=== PATIENT | male | born 1945 | race Caucasian/White ===

== ENCOUNTER → 2022-04-10 13:29 | Outpatient (BNVA) | payer MEDICARE, OTHER, SELFPAY | DX: N40.1 Benign prostatic hyperplasia with lower urinary tract symptoms (principal); N13.8 Other obstructive and reflux uropathy; R35.1 Nocturia; R68.82 Decreased libido; E29.1 Testicular hypofunction | CPT/HCPCS: 99202 ==

== ENCOUNTER → 2022-05-22 08:49 | Outpatient (BNVA) | payer MEDICARE, OTHER, SELFPAY | PROVIDERS: Visit Provider Urology | DX: N32.0 Bladder-neck obstruction (principal); R35.1 Nocturia; N40.1 Benign prostatic hyperplasia with lower urinary tract symptoms; R68.82 Decreased libido | CPT/HCPCS: Q3014 ==

== ENCOUNTER → 2022-12-29 15:03 | Outpatient (BNVA) | payer MEDICARE, OTHER, SELFPAY | PROVIDERS: Visit Provider Urology | DX: N32.0 Bladder-neck obstruction (principal); R35.1 Nocturia | CPT/HCPCS: 51798; 99212 ==

== ENCOUNTER 2023-05-28 08:46 | Outpatient (REF) | payer MEDICARE, OTHER, SELFPAY ==
--- NOTE | ~2023-05-28 | US_ITS ---
EXAMINATION: US PELVIS LIMITED (BLADDER) CLINICAL INFORMATION: Poor urinary stream. COMPARISON: None available. TECHNIQUE: Real-time imaging of the bladder. FINDINGS: BLADDER: Well distended and normal. Bilateral ureteral jets are demonstrated. Prevoid bladder volume is 488 mL. Postvoid bladder volume is 180 mL. Enlarged prostate, volume 56.9 mL. US/US bladder IMPRESSION: Increased post void bladder volume with an enlarged prostate suggesting chronic outlet obstruction.
== END 2023-05-28 08:47 | disposition home or self-care (01) ==
LOC: HO.HMGCX 08:46
PROVIDERS: Visit Provider Urology
DX: R39.12 Poor urinary stream (principal); N32.0 Bladder-neck obstruction
CPT/HCPCS: 76857

== ENCOUNTER 2023-08-18 12:48 | Outpatient (AMB) | payer MEDICARE, OTHER, SELFPAY ==
--- NOTE | 2023-08-18 12:50 | A.OFFVIS_ITS ---
Intake Intake Visit Reasons: cysto/US Intake Note: Patient is Present for Cystoscopy/US Urology Med: Tadalafil, Tamsulosin Antibiotic Allergy: None Blood Thinner: None URO- G Disposable Cystoscope lot:[id number] exp:03/24/25 Allergies No Known Allergies Allergy (Verified 08/18/23 12:56) HPI HPI Comments History of Present Illness Details Iggy is a pleasant male. He is a patient of Dr Tompkins. He is seen for the following urologic conditions - lower urinary tract symptoms - low libido Came off tamsulosin as did not think it was helpful Cystoscopy today Mild bilobar crowding Discussed procedure He would like to continue with follow-up Nocturia 2-3 times per night, weakness of stream Incomplete bladder emptying Double voiding Lower urinary tract symptoms Initial symptoms Urinary hesitancy, Nocturia 2-3 times per night, Weakness of stream Normal prostate exam Current therapy medications Cystoscopy prior with bilobar crowding Low libido Broken sleep Prior family history prostate cancer PSA 05/01 1.6, T 420 Review of Systems Const Denies chills and Denies fever(s) Card Reports no additional complaints and Denies syncope Resp Denies cough GI Denies abdominal pain and Denies heartburn Reports as per HPI and Denies change in libido Neuro Denies syncope Psych Denies change in libido Endo Denies change in libido Physical Exam Const General: cooperative, healthy appearing, comfortable and no acute distress Orientation/consciousness: patient oriented x3 HEENT Face and sinus: Yes normal facial exam Mouth: moist mucous membranes Neck Neck: Yes normal visual inspection, Yes full ROM and Yes trachea midline Chest Chest palpation & inspection: normal inspection of the chest Resp Effort & Inspection: normal respiratory effort, able to speak in complete sentences and no respiratory distress GI Inspection: Yes normal to inspection Back/Spine/Pelvis Cervical Spine: normal cervical lordosis Thoracic/Lumbar Spine: thoracic and lumbar spine normal to inspection Skin General skin exam: no rashes or lesions noted Neuro General: patient oriented x3, gait normal, tone normal and moves all extremities Extrem General: Yes normal to inspection and Yes capillary refill normal Office Procedures Cystoscopy Consent Discussed risk and benefit or proposed procedure with the patient. Information consent for procedure given to the patient. Discussed technical aspects, risks, benefits and alternatives in full. Addressed all of the patient's questions and concerns regarding the procedure. The patient demonstrated knowledge and understanding. They wish to proceed with this procedure. Preparation The patient was prepped in the usual manner. A student life coordinator was present and in the room. Genitalia was prepped with betadine solution in a sterile manner. Lidocaine Jelly 2% was placed into the urethra and 16Fr flexible Olympus cystoscope was inserted into the meatus after adequate lubrication. Procedure Meatus circumcised Urethra anterior posterior urethra normal Prostatic Urethra bilobar hypertrophy Bladder examination with retroflexion of cystoscope Bladder Orifices normal shape and position Bladder Capacity medium Trabeculations grade 2 Cellule Formation - Diverticulum Formation - Mucosal Erythema - Bladder Tumor - 90045-[id number] DISPOSABLE SCOPE URO-G FLEXIBLE SCOPE Procedure code (CPT) selection complete Office Meds lidocaine HCl 2 % mucosal jelly in applicator Performing Provider: Omar Schroeder MD Performing Location: [facility] [place] [facility] Administered by: Caron Mckay RN on 08/18/23 13:17 Dose Route Admin Location Dispensed Lot Number Expiration Date [facility] Dumper Bulk System 10 mL intra-urethral 10 mL nitrofurantoin monohydrate/macrocrystals 100 mg capsule Performing Provider: Omar Schroeder MD Performing Location: [facility] [place] [facility] Administered by: Caron Mckay RN on 08/18/23 13:17 Dose Route Admin Location Dispensed Lot Number Expiration Date [place] Dumper Bulk System 100 mg PO 1 cap naproxen 500 mg tablet Performing Provider: Omar Schroeder MD Performing Location: [facility] [place] [facility] Administered by: Caron Mckay RN on 08/18/23 13:17 Dose Route Admin Location Dispensed Lot Number Expiration Date [place] Dumper Bulk System 500 mg PO 1 tab Results AMB Urinalysis, Automated UA Leukoctes 0 Kevin/uL Last Edit by HRAITHA Pope on 08/18/23 13:22 UA Nitrite Negative Last Edit by HARITHA Pope on 08/18/23 13:22 UA Urobilinogen 0.2 mg/dL Last Edit by HARITHA Pope on 08/18/23 13:2 2 UA Protein 0 mg/dL Last Edit by HARITHA Pope on 08/18/23 13:22 UA pH 7.0 Last Edit by HARITHA Pope on 08/18/23 13:22 UA Blood 0 Tong/uL Last Edit by Karine Baltazar A on 08/18/23 13:22 UA Specific [place] 1.010 Last Edit by Karine Baltazar RMA on 08/18/23 13: 22 UA Ketone Negative Last Edit by Karine Baltazar, RMA on 08/18/23 13:22 UA Bilirubin 0 mg/dL Last Edit by Karine Baltazar RMA on 08/18/23 13:22 UA Glucose 0 mg/dL Last Edit by Karine Baltazar A on 08/18/23 13:22 Results Reviewed Results Reviewed: Laboratory Last Values Urine pH (Auto) 7.0 08/18/23 12:57 Specific [place] (Auto) 1.010 08/18/23 12:57 Urine Protein (Auto) 0 mg/dL 08/18/23 12:57 Glucose (UA)(Auto) 0 mg/dL 08/18/23 12:57 Urine Ketones (Auto) Negative 08/18/23 12:57 Urine Blood (Auto) 0 Tong/uL 08/18/23 12:57 Urine Nitrite (Auto) Negative 08/18/23 12:57 Urine Bilirubin (Auto) 0 mg/dL 08/18/23 12:57 Urine Urobilinogen (Auto) 0.2 mg/dL 08/18/23 12:57 Leukocyte Esterase (Auto) 0 Kevin/uL 08/18/23 12:57 Assessment & Plan Assessment & Plan (1) Nocturia more than twice per night: Code(s): R35.1 - Nocturia (2) Bladder outlet obstruction: Code(s): N32.0 - Bladder-neck obstruction (3) Low libido: Code(s): R68.82 - Decreased libido Plan Six month follow-up Orders: Orders AMB Urinalysis Automated 08/18/23 Z13.9 - Encounter for screening, unspecified AMB Cystoscopy 08/18/23 N32.0 - Bladder-neck obstruction Patient Instructions: Imaging studies, laboratory and physical exam results were discussed and reviewed in detail. No major barriers to patient understanding were identified. An opportunity to ask questions regarding the treatment plan was provided. All questions were answered. The patient expressed understanding and agreement with the above treatment plan. The patient is aware they should contact our office by phone for worsening of their current condition or the appearance of new urologic symptoms. Compliance is encouraged with any medications and followup testing that is ordered. It is a privilege to participate in the urologic care of your patient. If you have any questions or concerns regarding treatment for the above conditions, or other urologic issues, please do not hesitate to contact me. The office telephone contact is [phone]. This note is constructed using voice recognition software. While every effort has been made to ensure accuracy rn registry errors may have been included. Yours sincerely, Dr Omar Schroeder MD, [facility] - Urology Providers of Expert, Compassionate Care for the Genitourinary System Coding Level of Care Code Est Pt Level 3 (85437) Diagnoses Nocturia more than twice per night R35.1 Bladder outlet obstruction N32.0 Low libido R68.82 CPT Codes Cystoscopy - CPT: 62286-Vbxswjwiax ([id number])
== END 2023-08-18 13:43 | disposition home or self-care (01) ==
PROVIDERS: Visit Provider Urology
DX: R35.1 Nocturia (principal); N32.0 Bladder-neck obstruction; R68.82 Decreased libido
CPT/HCPCS: 52000; 99213

== ENCOUNTER → 2023-08-18 12:48 | Outpatient (BNVA) | payer MEDICARE, OTHER, SELFPAY | PROVIDERS: Visit Provider Urology | DX: N40.1 Benign prostatic hyperplasia with lower urinary tract symptoms (principal); N13.8 Other obstructive and reflux uropathy; R35.1 Nocturia; R68.82 Decreased libido; N32.0 Bladder-neck obstruction | CPT/HCPCS: 52000; 81003; 99212 ==

== ENCOUNTER 2025-05-22 09:58 | Outpatient (AMB) | payer MEDICARE, OTHER, SELFPAY ==
--- NOTE | 2025-05-22 10:15 | MHC.OFFVIS ---
Intake Visit Reasons: follow up- 2022 Intake Note: Patient is Present for follow up Urology Med: Tadalafil, Tamsulosin Antibiotic Allergy: None Blood Thinner: None PVR:647 mls Speech And Language Clinician Required: No Accompanied by: Self / Same As Patient Allergies No Known Allergies Allergy (Verified 05/22/25 10:16) HPI Comments Details: Iggy is a pleasant male. He is a patient of Dr Tompkins. He is seen for the following urologic conditions - lower urinary tract symptoms - low libido Last seen in office August 2023 Schedule GreenLight laser Lower urinary tract symptoms Initial symptoms Urinary hesitancy, Nocturia 2-3 times per night, Weakness of stream Normal prostate exam Current therapy medications Cystoscopy prior with bilobar crowding - offered prostate procedure Low libido Broken sleep Prior family history prostate cancer PSA 05/01 1.6, T 420 Office Procedures Post Void Residual Post Residual Void Post Void Residual (PVR): 647 [id number]-[id number] Void Residual by ultrasound Results AMB Urinalysis, Automated UA Leukoctes 0 Kevin/uL Last Edit by ÁLVARO Victor on 05/22/25 14:14 UA Nitrite Last Edit by ÁLVARO Victor on 05/22/25 14:14 UA Urobilinogen 3.5 mg/dL Last Edit by ÁLVARO Victor on 05/22/25 14:14 UA Protein 0 mg/dL Last Edit by ÁLVARO Victor on 05/22/25 14:14 UA pH 7.5 Last Edit by ÁLVARO Victor on 05/22/25 14:14 UA Blood 0 Tong/uL Last Edit by ÁLVARO Victor on 05/22/25 14:[address] [place] [address] 1.010 Last Edit by ÁLVARO Victor on 05/22/25 14:14 UA Ketone Negative Last Edit by ÁLVARO Victor on 05/22/25 14:14 UA Bilirubin 0 mg/dL Last Edit by ÁLVARO Victor on 05/22/25 14:14 UA Glucose 0 mg/dL Last Edit by ÁLVARO Victor on 05/22/25 14:14 Assessment & Plan Assessment & Plan Orders: Orders AMB Post Void Residual by ultrasound Today N32.0 - Bladder-neck obstruction, R35.1 - Nocturia, R68.82 - Decreased libido AMB Urinalysis Automated Today Z13.9 - Encounter for screening, unspecified Coding CPT Codes Post Residual Void - PVR CPT Code: 42333-Bzki Void Residual by ultrasound ([id number])
--- OUTSIDE RECORDS SUMMARY | 2025-05-22 10:53 | XMS_ITS | Clinical Summary ---
Author Organization [facility] Address [id number] [place] [address] Phone Care Team Providers Care Director Sales Support Name Role Phone Adrian Tompkins MD Primary Care Provider Allergies No known active allergies Medications zolpidem (AMBIEN) 5 MG tablet Take 10 mg by mouth nightly at bedtime as needed. Dose: 5 MG; Form: Take 1 TABLET; Route: PO; Frequency: QHS; Directions: Not available; Details: Duration: 10 day(s); Dispense: 10 Tablet(s); Date: 01/15/2012 2 Active aspirin 81 MG EC tablet Dose: 81 MG; Form: Take [address]; Route: PO; Frequency: QD; Directions: Not available; Details: Dispense: Tablet(s); Date: 08/21/2011 1 Active atorvastatin (LIPITOR) 10 MG tablet Take 80 mg by mouth daily. Dose: Not available; Form: Not available; Route: PO; Frequency: QHS; Directions: Not available; Details: Dispense: Tablet(s); Date: 01/15/2012 2 Active OMEPRAZOLE ORAL Dose: 40 MG; Form: Take [address]; Route: PO; Frequency: BID; Directions: Not available; Details: Dispense: Tablet(s); Date: 08/21/2011 1 Active b complex vitamins capsule Take 1 capsule by mouth daily. Active diclofenac sodium (VOLTAREN) 0.1 % ophthalmic solution Place 1 drop into the left eye 4 (four) times a day. Start 3 days before surgery then use as directed. 5 mL 1 1 Active Additional Information Patient not taking.Reported on 07/22/2021 ofloxacin (OCUFLOX) 0.3 % ophthalmic solution Place 1 drop into the left eye 4 (four) times a day. Start 3 days then use as directed 5 mL 1 1 Active Additional Information Patient not taking.Reported on 10/24/2021 prednisoLONE acetate (PRED FORTE) 1 % ophthalmic suspension Place 1 drop into the left eye 4 (four) times a day. Use after surgery as directed by physician. 5 mL 2 1 Active Additional Information Patient not taking.Reported on 08/11/2024 diclofenac sodium (VOLTAREN) 0.1 % ophthalmic solution Place 1 drop into the left eye 4 (four) times a day. Start 3 days before surgery then use as directed. 5 mL 1 1 Active Additional Information Patient not taking.Reported on 10/24/2021 valsartan (DIOVAN) 320 MG tablet Take 320 mg by mouth daily. Active metoprolol succinate (TOPROL-XL) 200 MG 24 hr tablet Take 200 mg by mouth daily. Active ezetimibe (ZETIA) 10 mg tablet Take 10 mg by mouth daily. Active LORazepam (ATIVAN) 1 MG tablet Take 1 mg by mouth nightly at bedtime. For insomnia Active ELIQUIS 5 mg tablet Take 5 mg by mouth 2 (two) times a day. Active NORVASC 2.5 mg tablet Take 2.5 mg by mouth. 4 Active Active Problems Problem Noted Date Diagnosed Date Hypertensive disorder 04/21/2012 Overview (12/01/2014): HTN - Hypertension Hypercholesterolemia 04/21/2012 Overview (12/01/2014): Hypercholesterolemia Sleep disorder 04/21/2012 Overview (12/01/2014): Sleep disorder Anxiety 04/21/2012 Overview (12/01/2014): Anxiety Family History Medical History Relation Comments Diabetes Brother younger brother High blood pressure Unspecified his siblings Relation Status Comments Brother Father Mother Unspecified Social History Tobacco Use Types Packs/Day Years Used Date Smoking Tobacco: Former Cigarettes Smokeless Tobacco: Never Tobacco Cessation:Counseling Given: Not Answered Comments:Smoking History Packs/day: <=0.5 Quit smokin10/11/1995 Alcohol Use Standard Drinks/Week Comments Yes 14 (1 standard drink = 0.6 oz pu re alcohol) little bit , social- beer Education Answer Date Recorded Are you interested in more education? Not on bernarda e 02/14/2023 Are you concerned about learning? Not on file 02/14/2023 No 02/14/2023 No 02/14/2023 Digital Access Answer Date Recorded No 03/07/2023 No 03/07/2023 Reliable internet access at home? Not on file 03/07/2023 Device with a working camera? Not on file Sex and Gender Information Value Date Recorded Sex Assigned at Not on file Legal Sex Male 6:19 PM EST Gender Identity Not on file Sexual Orientation Not on file Last Filed Vital Signs Vital Sign Reading Time Taken Comments Blood Pressure 106/75 07/29/2021 11:15 AM EDT Pulse 86 07/29/2021 11:15 AM EDT Temperature 36.8 C (98.2 F) 07/29/2021 11:02 AM EDT Respiratory Rate 19 07/29/2021 11:15 AM EDT Oxygen Saturation 97% 07/29/2021 11:15 AM EDT Inhaled Oxygen Concentration - - Weight 108.9 kg (240 lb) 08/11/2024 2:38 PM EDT Height 175.3 cm (5' 9 ) 08/11/2024 2:38 PM EDT Body Mass Index 35.44 08/11/2024 2:38 PM EDT Plan of Treatment Health Maintenance Due Date Last Done Comments Adult Td,Tdap Booster 1946 BLOOD PRESSURE 1946 CREATININE LEVEL 1946 LIPID PANEL 1946 POTASSIUM LEVEL 1946 DEPRESSION SCREENING 1958 SMOKING Hx and SMOKELESS TOBACCO SCREENING 1959 HEPATITIS C SCREENING 1964 PNEUMOCOCCAL VACCINES (50+ years) (1 of 1 - PCV) 1996 ZOSTER VACCINES (1 of 2) 1996 RSV VACCINE (1 - 1-dose 75+ series) 2021 COVID-19 VACCINE (3 - 2023-2 5 season) 2024 11/29/2020, 10/31/2020 HEPATITIS A VACCINES Aged Out No long er eligible based on patient's age to complete this topic HIB VACCINES Aged Out No longer eligi ble based on patient's age to complete this topic MENINGOCOCCAL VACCINES (ACWY) Aged Out No longer eligible based on patient's age to complete this topic MENINGOCOCCAL VACCINES (B) Aged Out N o longer eligible based on patient's age to complete this topic Medical Devices Implanted Type Area Combat Systems Engineer Device Identifier Shelf Expiration Date Model / Serial / Lot Lens Lens Lens Intraocular Sn60wf 18.0d - [id number] Implanted:Qty: 1 on 07/29/2021 by Juana López MD at [facility] [place] Left: Eye [employer] 03/04/2026 SN60WF 18.0D / [id number] / Insurance MEDICARE PART A & B Member Subscriber Plan / Payer (Ef fective 2020-Present) Name:Iggy Morris Member ID:[id number] Relation to Subscriber:Self Name:Iggy Morris Subscriber ID:[id number] Payer ID:[id number] Group ID:Not on file Type:Medicare Address: [employer] [facility] [employer] [address] [facility] [place] [address] [facility] MEDICARE SUPPLEMENT MEDICARE PART A & B [employer] MEDICARE SUPPLEMENT MEDICARE PART A & B [employer] MEDICARE SUPPLEMENT MEDICARE PART A & B [facility] MEDICARE SUPPLEMENT MEDICARE PART A & B [employer] MEDICARE SUPPLEMENT MEDICARE PART A & [place] [place] [address] EXTENSION MEDICARE SUPPLEMENT MEDICARE PART A & B [employer] MEDICARE SUPPLEMENT MEDICARE PART A & B [employer] MEDICARE SUPPLEMENT MEDICARE PART A & B [facility] MEDICARE SUPPLEMENT Advance Directives For more information, please contact: [phone] (9AM - 5PM [facility], Wednesday-Wednesday) Documents on File Type Date Recorded Patient Certified Physical Therapist Assistant Expl anation Healthcare Proxy 07/29/2021 Care Teams Director Sales Support Relationship Specialty Start Date End Date Adrian Tompkins MD [address] [place] [id number] PCP - General 04/10/14 Additional Source Comments The information contained in this document represents components of the legal health record. It is not the complete legal health record.[facility]"
--- OUTSIDE RECORDS SUMMARY | 2025-05-22 10:53 | XMS_ITS | Clinical Summary ---
Author Organization [facility] Address [address] [place] [address] Care Team Providers Care Truck Loader Name Role Phone No, Pcp MD Primary Care Provider Unavailabl e Allergies No known active allergies Medications amlodipine-benaz epril (LOTREL 5-20) 5-20 mg capsule 03/21/2017 Active atorvastatin (LIPITOR) 80 MG tablet 04/06/2017 Active LORazepam (ATIVAN) 1 MG tablet 04/10/2017 Active metoprolol (TOPROL-XL) 200 MG 24 hr tablet 100 mg. 03/21/2017 Act aminata mirtazapine (REMERON) 15 MG tablet 03/10/2017 Active zolpidem (AMBIEN) 10 mg tablet 04/10/2017 Active omeprazole (PRILOSEC) 40 MG delayed release capsule 04/06/2017 Active aspirin 81 MG enteric coated tablet Take 81 mg by mouth once daily. Active Family History Medical History Relation Name Comments Heart attack Father Relation Name Status Comments Father Social History Tobacco Use Types Packs/Day Years Used Date Smoking Tobacco: Never Alcohol Use Standard Drinks/Week Comments Yes 0 (1 standard drink = 0.6 oz pur e alcohol) Sex and Gender Information Value Date Recorded Sex Assigned at Not on file Legal Sex Male 4:32 PM EDT Gender Identity Not on file Sexual Orientation Not on file Last Filed Vital Signs Vital Sign Reading Time Taken Comments Blood Pressure 112/75 04/12/2017 7:57 PM EDT Pulse 105 04/12/2017 7:57 PM EDT Temperature 36.8 C (98.2 F) 04/12/2017 4:34 PM EDT Respiratory Rate 24 04/12/2017 7:38 PM EDT Oxygen Saturation 92% 04/12/2017 7:38 PM EDT Inhaled Oxygen Concentration - - Weight 109.5 kg (241 lb 8 oz) 04/12/2017 6:00 PM EDT Height 175.3 cm (5' 9 ) 04/12/2017 4:34 PM EDT Body Mass Index 35.66 04/12/2017 4:34 PM EDT Plan of Treatment Not on file Insurance [facility] [place] [id number] Care Teams Truck Loader Relationship Specialty Start Date End Date No, MD Brice No Address [place] [address] [address] PCP - General 04/12/17
--- OUTSIDE RECORDS SUMMARY | 2025-05-22 10:53 | XMS_ITS | Patient Health Record ---
Author Organization [facility] Address [address] [facility] [address] [place] [address] Care Team Providers Care Director Of Dance Name Role Phone Bob Tao CNP Primary Care Provider Unavaila aquiles NAYLOREY COLLIN Unavailable [phone] Allergies No Known Allergies Reason For Referral No Information Medications Medication SIG (Take, Route, Frequency, Duration) Notes Start Date End Date Status Valsartan 320 MG 1 tablet Orally Once a day Active Vitamin D3 [id number] UNIT/GM as directed Active Metoprolol Succinate ER 200 MG 1 tablet Orally Once a day Not-Taking Vitamin B12 100 MCG as directed Orally Active Dicyclomine HCl 10 MG 2 capsules Orally Three times a day Not-Taking Amiodarone HCl 200 MG 1 tablet Orally On ce a day Active Ambien 10 MG 1 tablet at bedtime as needed Orally Once a day Active Eliquis 5 MG 1 tablet Orally a day Active Mupirocin 2 % 1 application Externally Twice a day Not-Takin g Atorvastatin Calcium 80 MG 1 tablet Oral ly Once a day Active Ativan 1 MG 1 tablet at bedtime as needed Orally Once a day Active Ezetimibe 10 MG 1 tablet Orally Once a day Active Cyclobenzaprine HCl 10 MG 1 tablet at be dtime as needed Orally Once a day Active Omeprazole 40 MG 1 capsule 30 minutes before morning meal Orally Once a day Active amLODIPine Besylate 2.5 MG 1 tablet Oral ly Once a day Not-Taking Mirtazapine 15 MG 1 tablet at bedtime Orally Once a day Active Clotrimazole-Betamethasone 1-0.05 % 1 application Externally to right foot Twice a day; Duration: 28 days 04/28/2023 Not-Taking Aspirin 81 81 MG 1 tablet Orally Once a day Not-Taking Vital Signs Height 5ft 9in in 10/23/2024 Weight 252.3 lbs 10/23/2024 BMI 37.25 kg/m2 10/23/2024 Procedures Procedure Date Ordered Date Performed Result Body Sit e Nail avulsion partial/complete 10/23/2024 N/A Encounters Encounter Location Date Provider Diagnosis [facility] [address] [facility] [facility] [address] [place] [address] 10/23/2024 COLLIN HERRERA Ingrown right big toenail L60.0 ; Pain around toenail, right foot M79.674 and Acquired deformity of toenail L60.8 Assessments Encounter Date Diagnosis (ICD Code) Assessment Notes Treatment Notes Treatment Clinical Notes Section Notes 10/23/2024 Pain around toenail, right foot (ICD-10 - M79.674) 10/23/2024 Ingrown right big toenail (ICD-10 - L60.0) 10/23/2024 Acquired deformity of toenail (ICD-10 - L60.8) Mr. Morris examined and evaluated. He has tenderness to both sides of the right hallux toenail. The nail does have increased central thickness causing increased curvature to the medial and lateral borders. I discussed options of treatment of warm water soaks, full nail plate avulsion vs partial avulsions. He wished to have both sides removed again as this gave him relief in the past. This was done in the office under local anesthetic. He tolerated this well. He was given written post op instructions and the toe was bandaged. He is to change the bandage daily and apply topical antibiotics for the next week. I will see him back in 2 weeks or sooner if needed. Plan Of Treatment Pending Test Test Name Order Date Nail avulsion partial/complete 3 Nail avulsion partial/complete 4 Nail avulsion partial/complete 5 Debridement of toenail 1-5 04/28/2023 Insurance Providers Payer Name Payer Address Payer Phone Subscriber Number Group Number Insured Name Patient Relationship to Insured Coverage Start Date Coverage End Date [employer] of [place] [address] [place] [id number] Iggy Morris Self - patient is the insured [facility] [address] [place] [address] [id number] Iggy Morris Self - patient is the insured Medical (General) History Medical History History ICD Code Bilateral Cataracts Cardiomyopathy Elevated Liver Enzymes ESAU - Generalized Anxiety Disorder GERD - Gastroesophageal Reflux Disease HTN - Hypertension Insomnia Disorder Mixed Hyperlipidemia Prediabetes Renal Cyst, Left RUQ Discomfort Varicose Veins Gout COVID vaccinated Atrial fibrillation Surgical History Surgery Date(Month/Year) Repair of Knee Joint Excision of excessive skin and subcutane ous tissue Avulsion of varicose vein in leg Open repair of inguinal hernia Hospitalization History Reason Date(Month/Year) heart arrhythmia: Afib/flutter 10/2023 Cardiomyopathy 2019
== END 2025-05-22 10:56 | disposition home or self-care (01) ==
LOC: HO.HUSH 09:59
PROVIDERS: Visit Provider Urology
DX: Z13.9 Encounter for screening, unspecified (principal)

== ENCOUNTER → 2025-05-22 09:58 | Outpatient (BNVA) | payer MEDICARE, OTHER, SELFPAY | PROVIDERS: Visit Provider Urology | DX: R35.1 Nocturia (principal); N32.0 Bladder-neck obstruction; R68.82 Decreased libido | CPT/HCPCS: 51798; 81003; 99212 ==